=== PATIENT | male | born 1970 | race Caucasian/White ===

== ENCOUNTER 2017-04-19 05:47 | Emergency (ER) | payer MEDICARE, OTHER ==
[~2017-04-19] VITALS: Ht 177.8 cm; Wt 90.7 kg
[~2017-04-19 05:47] MED LIST: ABILIFY30 MG ORAL; ATIVAN1 MG ORAL; BENZOYL PEROXID TP; BENZTROPINE MESY1 MG PO; BUPROPION XL150 MG ORAL; BUSPIRONE HCL15 MG ORAL; DEBROX15 M1 OT; DICYCLOMIN10 MG/5 M1 PO; ESOMEPRAZOLE MA40 MG PO; FLUOXETINE HCL40 MG ORAL; GABAPENTIN600 MG ORAL; IBUPROFEN200 M2 ORAL; IBUPROFEN600 MG ORAL; KLONOPIN1 MG ORAL; LACTULOSE20 GM/301 ORAL; LANSOPRAZOLE30 MG ORAL; LORAZEPAM1 MG ORAL; MECLIZINE HCL25 MG ORAL; MIDODRINE HCL5 MG ORAL; ONDANSETRON4 MG/2 M2 IVP; PAROXETINE HC12.5 MG ORAL; SIMVASTATIN40 MG ORAL; TEMAZEPAM15 MG ORAL; TEMAZEPAM30 MG ORAL; [UNRECOGNIZED DRUG - OTHER] TP
[2017-04-19 06:31] VITALS: BP 135/68
[2017-04-19 06:45] VITALS: BP 135/68
[2017-04-19] MEDS ORDERED: COLACE100 MG ORAL (06:45)
[2017-04-19] MEDS ORDERED: LACTULOSE20 GM/301 ORAL (06:45)
--- NOTE | 2017-04-19 06:54 | Emergency Room Report ---
History of Present Illness General Chief Complaint: Constipation Source: Patient, EMS Present Illness HPI 46-year-old male, presenting with one week of intermittent constipation, left ankle pain. Patient states that his stool has been very hard. His last stool was went to days. He is passing gas. Denies any history of abdominal surgeries. No nausea vomiting. No fever no chills. No black or bloody stools States that he has had problems constipation in the past Also complaining of intermittent left ankle pain, no trauma, patient states that he is still been able to walk without difficulty. Allergies: Coded Allergies: HALOPERIDOL (Verified Allergy, Unknown, 08/09/13) Patient History Past Medical History: see triage record Past Surgical History: none Pertinent Family History: none Reviewed Nursing Documentation: PMH: Agreed, PSxH: Agreed Nursing Documentation-PMH Hx Cardiac Problems: No Hx Hypertension: Yes Hx Cancer: No History Of Psychiatric Problem: Yes Hx Neurological Problems: No Review of Systems All Other Systems: negative except mentioned in HPI Physical Exam Vital Signs Date Time Temp Pulse Resp B/P (MAP) Pulse Ox O2 Delivery O2 Flow Rate FiO2 04/19/17 05:40 98.4 100 16 135/68 99 Sp02 EP Interpretation: reviewed, normal General Appearance: normal inspection, well appearing, no apparent distress, alert, GCS 15, non-toxic, other - calm, cooperative, ambulating around ED Head: normocephalic, atraumatic Eyes: bilateral eye normal inspection, bilateral eye PERRL, bilateral eye EOMI ENT: normal ENT inspection, normal pharynx, normal voice, moist mucus membranes Neck: normal inspection, full range of motion, supple Respiratory: normal inspection, lungs clear, normal breath sounds, no respiratory distress, no retraction, no wheezing, speaking full sentences, chest symmetrical Cardiovascular #1: normal inspection, regular rate, rhythm, no edema, normal capillary refill Cardiovascular #2: 2+ radial (R), 2+ radial (L) Gastrointestinal: normal inspection, non tender, soft, non-distended, no guarding, other - normal bowel sounds. non tender all quadrants Genitourinary: no CVA tenderness Musculoskeletal: back normal, normal range of motion, other - L ankle, nontender, no edema, no gross bony deformities, no signs cellulitis, FROM Neurologic: normal inspection, alert, oriented x3, responsive, motor strength/ tone normal, sensory intact, normal gait, speech normal Psychiatric: normal inspection, judgement/insight normal, memory normal Skin: normal inspection, normal color, no rash, warm/dry, well hydrated, normal turgor Medical Decision Making Diagnostic Impression: Primary Impression: Constipation ER Course 38-year-old male with intermittent constipation for one week. Left ankle pain. DDX: Intermittent constipation: Abdomen is soft nontender, he has passed hard stool yesterday. Do not believe that this patient is obstructed at this time. benign physical exam L ankle pain: no signs of trauma. nontender, benign exam. no indication for imaging at this time. Plan: none in ED ER course: Patient has remained stable during ED stay. ambulatory. asking to eat. Disposition: Patient is to be discharged to home. Prescriptions given are lactulose and colace Patient is instructed to follow up with their primary care doctor within 5 days. Strict return precautions discussed with patient such as fever, chills, worsening/severe pain, no passage of gas/stool x 2 days, chest pain, SOB, nausea , vomiting, which may indicate severe illness. Patient verbalizes understanding and agrees with plan. Also instructed that if ankle pain gets worse, unable to ambulate to fu with ortho Please note that this Emergency Department Report was dictated using [employer] blacker technology software, occasionally this can lead to erroneous entry secondary to interpretation by the dictation equipment Last Vital Signs Date Time Temp Pulse Resp B/P (MAP) Pulse Ox O2 Delivery O2 Flow Rate FiO2 04/19/17 06:31 98.4 16 135/68 99 04/19/17 05:40 100 Disposition: HOME, SELF-CARE Condition: Improved Scripts Lactulose (LACTULOSE*) 20 Gm/30 Ml Solution 20 ML ORAL BID for 3 Days, #120 ML 0 Refills Prov: Christine Schwarz M.D. 04/19/17 Docusate Sodium* (COLACE*) 100 Mg Capsule 100 MG ORAL TWICE A DAY for 7 Days, #14 CAP 0 Refills Prov: Christine Schwarz M.D. 04/19/17 Patient Instructions: Constipation, Adult, Ankle Pain Christine Schwarz M.D. Apr 19, 2017 06:54
== END 2017-04-19 08:36 | disposition home or self-care (01) ==
LOC: EDBD 05:47 → EMR 06:30
DX: K59.00 Constipation, unspecified (principal); M25.572 Pain in left ankle and joints of left foot; I10 Essential (primary) hypertension
CPT/HCPCS: 99283

== ENCOUNTER 2017-05-16 20:55 | Emergency (ER) | payer MEDICARE, OTHER ==
[~2017-05-16] VITALS: Ht 182.9 cm; Wt 81.6 kg
[~2017-05-16 20:55] MED LIST changes: +COLACE100 MG ORAL
[2017-05-16 21:00] VITALS: BP 113/76
[2017-05-16] MEDS ORDERED: IBUPROFEN600 MG ORAL (22:44)
--- NOTE | 2017-05-16 22:44 | Emergency Room Report ---
History of Present Illness General Chief Complaint: Flu Like Symptoms Source: Patient, EMS Present Illness HPI This is a 46-year-old male resided in a [facility]. He has a psychiatric history. He presents with chief complaint of weakness and dizziness. Lynden nauseous but no vomiting. No diarrhea. The room spinning. has congestion and slight cough. Denies any other complaint. Came in by EMS. Is walking from triage without any difficulty. Allergies: Coded Allergies: HALOPERIDOL (Verified Allergy, Unknown, 08/09/13) Patient History Past Medical History: see triage record, old chart reviewed, psych hx Past Surgical History: other Pertinent Family History: none Social History: Denies: smoking Immunizations: other Reviewed Nursing Documentation: PMH: Agreed, PSxH: Agreed Nursing Documentation-PMH Past Medical History: No History, Except For Hx Cardiac Problems: No Hx Hypertension: Yes Hx Cancer: No History Of Psychiatric Problem: Yes Hx Neurological Problems: No Review of Systems Constitutional: Reports: weakness Eye: Denies: eye pain, blurred vision ENT: Denies: ear pain, nose congestion, throat swelling Respiratory: Denies: cough, shortness of breath Cardiovascular: Denies: chest pain, palpitations Gastrointestinal: Denies: abdominal pain, diarrhea, nausea, vomiting Musculoskeletal: Denies: back pain, joint pain Skin: Denies: rash Neurological: Denies: headache, numbness Endocrine: Denies: increased thirst, increased urine Hematologic/Lymphatic: Denies: easy bruising All Other Systems: negative except mentioned in HPI Physical Exam Vital Signs Date Time Temp Pulse Resp B/P (MAP) Pulse Ox O2 Delivery O2 Flow Rate FiO2 05/16/17 20:47 100.0 111 16 113/76 98 vitals with a low-grade fever Sp02 EP Interpretation: reviewed, normal General Appearance: well appearing, no apparent distress, alert Head: normocephalic, atraumatic Eyes: bilateral eye PERRL, bilateral eye EOMI ENT: hearing grossly normal, normal pharynx Neck: full range of motion, supple, no meningismus Respiratory: chest non-tender, lungs clear, normal breath sounds Cardiovascular #1: regular rate, rhythm, no murmur Gastrointestinal: normal bowel sounds, non tender, no mass, no organomegaly, no bruit, non-distended Musculoskeletal: back normal, gait/station normal, normal range of motion Psychiatric: mood/affect normal Skin: warm/dry Medical Decision Making Diagnostic Impression: Primary Impression: Viral illness ER Course Patient with a viral illness. No evidence of meningitis, sepsis, pneumonia to name a few. Last Vital Signs Date Time Temp Pulse Resp B/P (MAP) Pulse Ox O2 Delivery O2 Flow Rate FiO2 05/16/17 20:47 100.0 111 16 113/76 98 Status: improved Disposition: HOME, SELF-CARE Condition: Stable Scripts Ibuprofen* (MOTRIN*) 600 Mg Tablet 600 MG ORAL Q8H Y for For Pain, #30 TAB 0 Refills Prov: JIM PRYOR M.D. 05/16/17 Additional Instructions: Followup with your Dr. in 7 days. Return if symptom worsen. JIM PRYOR M.D. May 16, 2017 22:44
[2017-05-16 23:07] VITALS: BP 113/76
== END 2017-05-16 22:25 | disposition home or self-care (01) ==
LOC: EDBD 20:55 → EMR 21:44
DX: B34.9 Viral infection, unspecified (principal); R53.1 Weakness; R42 Dizziness and giddiness; I10 Essential (primary) hypertension
CPT/HCPCS: 99284

== ENCOUNTER 2017-12-21 19:22 | Emergency (ER) | payer MEDICARE, OTHER ==
[~2017-12-21] VITALS: Ht 177.8 cm; Wt 85.3 kg
[2017-12-21] MEDS ORDERED: Metoclopramide 10mg/2ml Inj IVP ONE (19:30)
[2017-12-21] MEDS ORDERED: Meclizine 25mg tab ORAL ONE (19:30)
[2017-12-21 19:55] LABS: BASOPHILS % (AUTO) 0.8 % (0.0-2.0); EOSINOPHILS % (AUTO) 1.5 % (0.0-3.0); HEMATOCRIT 39.1 % (42.0-52.0); HEMOGLOBIN 14.1 G/DL (14.2-18.0); LYMPHOCYTES % (AUTO) 19.9 % (20.0-45.0); MEAN CORPUSCULAR VOLUME 88 FL (80-99); MONOCYTES % (AUTO) 6.5 % (1.0-10.0); NEUTROPHILS % (AUTO) 71.3 % (45.0-75.0); PLATELET COUNT 253 K/UL (150-450); RED BLOOD COUNT 4.44 M/UL (4.70-6.10); RED CELL DISTRIBUTION WIDTH 11.4 % (11.6-14.8)
[2017-12-21 20:04] LABS: ANION GAP 7 mmol/L (5-15); BLOOD UREA NITROGEN 13 mg/dL (7-18); CALCIUM 9.3 MG/DL (8.5-10.1); CARBON DIOXIDE 27 MMOL/L (21-32); CHLORIDE 101 MMOL/L (98-107); CREATININE 0.9 MG/DL (0.55-1.30); SODIUM 135 MMOL/L (136-145)
[2017-12-21 20:09] LABS: ALANINE AMINOTRANSFERASE 23 U/L (12-78); ALBUMIN 4.1 G/DL (3.4-5.0); ALBUMIN/GLOBULIN RATIO 1.1 (1.0-2.7); ALKALINE PHOSPHATASE 59 U/L (46-116); ASPARTATE AMINO TRANSFERASE 31 U/L (15-37); BILIRUBIN,TOTAL 0.7 MG/DL (0.2-1.0)
[2017-12-21 20:37] VITALS: BP 103/65
[2017-12-21] MEDS ORDERED: REGLAN10 MG ORAL (20:47)
[2017-12-21] MEDS ORDERED: VERTICALM25 MG ORAL (20:47)
[2017-12-21 21:10] VITALS: BP 103/65
--- NOTE | 2017-12-21 21:19 | Emergency Room Report ---
History of Present Illness General Chief Complaint: Dizziness Source: Patient Present Illness HPI 47-year-old male presents ED complaining of dizziness. Brought in by EMS. States that he is expressing room spinning sensation, worse with sudden head movement. Notes nausea and vomiting. Denies any headache. Denies any chest pain or shortness of breath. Patient states he was receiving diagnosed with vertigo after being seen at [facility]. Patient states MRI of his head was negative. Was discharged on meclizine. States he did not fill his prescription yet. No other aggravating relieving factors. Denies any other associated symptoms Allergies: Coded Allergies: HALOPERIDOL (Verified Allergy, Unknown, 08/09/13) Patient History Past Medical History: HTN, psych hx Past Surgical History: none Pertinent Family History: none Social History: Denies: smoking, alcohol use, drug use Immunizations: UTD Reviewed Nursing Documentation: PMH: Agreed; PSxH: Agreed Nursing Documentation-PMH Hx Cardiac Problems: No Hx Hypertension: Yes Hx Cancer: No Hx Neurological Problems: No Review of Systems All Other Systems: negative except mentioned in HPI Physical Exam Vital Signs Date Time Temp Pulse Resp B/P (MAP) Pulse Ox O2 Delivery O2 Flow Rate FiO2 12/21/17 19:11 98.6 71 17 115/76 98 Room Air 98.6 Sp02 EP Interpretation: reviewed, normal General Appearance: no apparent distress, alert, GCS 15, non-toxic Head: normocephalic, atraumatic Eyes: bilateral eye normal inspection, bilateral eye PERRL ENT: hearing grossly normal, normal pharynx, no angioedema, normal voice Neck: full range of motion, supple/symm/no masses Respiratory: chest non-tender, lungs clear, normal breath sounds, speaking full sentences Cardiovascular #1: regular rate, rhythm, no edema Cardiovascular #2: 2+ carotid (R), 2+ carotid (L), 2+ radial (R), 2+ radial (L) , 2+ dorsalis pedis (R), 2+ dorsalis pedis (L) Gastrointestinal: normal bowel sounds, non tender, soft, non-distended, no guarding, no rebound Rectal: deferred Genitourinary: normal inspection, no CVA tenderness Musculoskeletal: back normal, gait/station normal, normal range of motion, non- tender Neurologic: alert, oriented x3, responsive, motor strength/tone normal, sensory intact, speech normal Psychiatric: judgement/insight normal, memory normal, mood/affect normal, no suicidal/homicidal ideation Reflexes: 3+ bicep (R), 3+ bicep (L), 3+ tricep (R), 3+ tricep (L), 3+ knee (R) , 3+ knee (L) Skin: normal color, no rash, warm/dry, well hydrated Lymphatic: no adenopathy Medical Decision Making Diagnostic Impression: Primary Impression: Vertigo ER Course Hospital Course 47 year-old male presents ED complaining of dizziness Differential diagnoses include: dehydration, vertigo, psych Clinical course Patient placed on stretcher.After initial history and physical I ordered labs, IVFS, reglan, meclizine labs reviewed- no leukocytosis, hemoglobin/hematocrit stable, electrolytes okay, Upon reassessment patient states his symptoms have improved. Clinical findings consistent with vertigo. Patient or to have a workup at [facility] including MRI. I see no reason to repeat imaging. Patient will be discharged with meclizine and Reglan I. I feel this is a highly complex case requiring extensive working including EKG/Rhythm strip, Xray/CT/US, Blood/urine lab work, repeat exams while in ED, and administration of strong opiates/narcotics for pain control, admission to hospital or close patient follow up. Diagnosis - vertigo stable and discharged to home with prescription for meclizine, reglan. Followup with PMD. Return to ED if symptoms recur or worsen Labs Test 12/21/17 19:45 White Blood Count 7.0 K/UL (4.8-10.8) Red Blood Count 4.44 M/UL (4.70-6.10) Hemoglobin 14.1 G/DL (14.2-18.0) Hematocrit 39.1 % (42.0-52.0) Mean Corpuscular Volume 88 FL (80-99) Mean Corpuscular Hemoglobin 31.8 PG (27.0-31.0) Mean Corpuscular Hemoglobin Concent 36.2 G/DL (32.0-36.0) Red Cell Distribution Width 11.4 % (11.6-14.8) Platelet Count 253 K/UL (150-450) Mean Platelet Volume 5.4 FL (6.5-10.1) Neutrophils (%) (Auto) 71.3 % (45.0-75.0) Lymphocytes (%) (Auto) 19.9 % (20.0-45.0) Monocytes (%) (Auto) 6.5 % (1.0-10.0) Eosinophils (%) (Auto) 1.5 % (0.0-3.0) Basophils (%) (Auto) 0.8 % (0.0-2.0) Sodium Level 135 MMOL/L (136-145) Potassium Level 4.0 MMOL/L (3.5-5.1) Chloride Level 101 MMOL/L (98-107) Carbon Dioxide Level 27 MMOL/L (21-32) Anion Gap 7 mmol/L (5-15) Blood Urea Nitrogen 13 mg/dL (7-18) Creatinine 0.9 MG/DL (0.55-1.30) Estimat Glomerular Filtration Rate > 60 mL/min (>60) Glucose Level 117 MG/DL (74-106) Calcium Level 9.3 MG/DL (8.5-10.1) Total Bilirubin 0.7 MG/DL (0.2-1.0) Aspartate Amino Transf (AST/SGOT) 31 U/L (15-37) Alanine Aminotransferase (ALT/SGPT) 23 U/L (12-78) Alkaline Phosphatase 59 U/L (46-116) Total Protein 7.8 G/DL (6.4-8.2) Albumin 4.1 G/DL (3.4-5.0) Globulin 3.7 g/dL Albumin/Globulin Ratio 1.1 (1.0-2.7) Lab Results Impression Last Vital Signs Date Time Temp Pulse Resp B/P (MAP) Pulse Ox O2 Delivery O2 Flow Rate FiO2 12/21/17 20:37 97.7 74 16 103/65 100 Room Air 97.7 Status: improved Disposition: HOME, SELF-CARE Condition: Stable Scripts Meclizine Hcl* (VERTICALM*) 25 Mg Tablet 25 MG ORAL THREE TIMES A DAY for 7 Days, TAB Prov: Ashwin Ham MD 12/21/17 Metoclopramide Hcl* (REGLAN*) 10 Mg Tablet 10 MG ORAL QID for 7 Days, TAB Prov: Ashwin Ham MD 12/21/17 Patient Instructions: Vertigo, Jamie Maneuver Self-Care Ashwin Ham MD Dec 21, 2017 21:19
== END 2017-12-21 21:10 | disposition home or self-care (01) ==
LOC: EDBD 19:22 → EMR 20:04
DX: R42 Dizziness and giddiness (principal); I10 Essential (primary) hypertension; Z79.899 Other long term (current) drug therapy
CPT/HCPCS: 36415; 80053; 85025; 96361; 96374; 99284; J2765

== ENCOUNTER 2018-02-24 06:37 | Emergency (ER) | payer MEDICARE, OTHER ==
[~2018-02-24] VITALS: Ht 177.8 cm; Wt 83.9 kg
[2018-02-24 06:36] VITALS: BP 116/76
[~2018-02-24 06:37] MED LIST changes: +REGLAN10 MG ORAL; +VERTICALM25 MG ORAL
[2018-02-24] MEDS ORDERED: Ketorolac 60mg Inj IM ONE (06:45)
--- NOTE | 2018-02-24 06:49 | Emergency Room Report ---
History of Present Illness General Chief Complaint: Pain Source: Patient Present Illness HPI 47-year-old male with history of anxiety and depression, reports that he's having bilateral foot pain, and he gets blisters very easily. He denies diabetes, denies smoking drugs or alcohol use. Any recent injuries, just reports that he got a new pair shoes,[employer], and they run small. I told him that I have the same pair and mine run small as well, I recommend that he return for a larger size or just get a new pair and not wear these for extended periods. He denies any redness or swelling, just reports he gets frequent blisters and has popped patient. He requests something for the pain as well as a bus pass. Allergies: Coded Allergies: HALOPERIDOL (Verified Allergy, Unknown, 08/09/13) Patient History Past Medical History: see triage record Reviewed Nursing Documentation: PMH: Agreed; PSxH: Agreed Nursing Documentation-PMH Hx Cardiac Problems: No Hx Hypertension: No - hypotension Hx Cancer: No History Of Psychiatric Problem: Yes Hx Neurological Problems: No Review of Systems Constitutional: Denies: fever Eye: Denies: acuity changes Respiratory: Denies: cough, shortness of breath Cardiovascular: Denies: chest pain Gastrointestinal: Denies: nausea, vomiting Skin: Denies: rash Neurological: Denies: headache All Other Systems: negative except mentioned in HPI Physical Exam Vital Signs Date Time Temp Pulse Resp B/P (MAP) Pulse Ox O2 Delivery O2 Flow Rate FiO2 02/24/18 06:25 99.9 99 16 116/76 96 Room Air General Appearance: well appearing, no apparent distress Head: normocephalic, atraumatic ENT: hearing grossly normal, normal voice Neck: full range of motion, supple Respiratory: normal inspection, chest non-tender, lungs clear, normal breath sounds, no respiratory distress, speaking full sentences Cardiovascular #1: normal inspection, normal peripheral pulses, regular rate, rhythm Cardiovascular #2: 2+ dorsalis pedis (R), 2+ dorsalis pedis (L) Gastrointestinal: non tender, soft, no mass, no guarding, no rebound Genitourinary: no CVA tenderness Musculoskeletal: gait/station normal, normal range of motion, no calf tenderness Neurologic: alert, normal gait Psychiatric: mood/affect normal Skin: no rash, other - no blisters seen bilateral feet; just small linear abrasion 3-4 on each foot, no erythema, no warmth, no tenderness Lymphatic: no adenopathy Medical Decision Making Diagnostic Impression: Primary Impression: Pain ER Course patient with foot pain, c/o blisters, but no blisters seen currently, he reports he gets them frequently though, i recommend changing shoes to a looser pair, will give ibuprofen; i think he is primarily here for a bus pass Last Vital Signs Date Time Temp Pulse Resp B/P (MAP) Pulse Ox O2 Delivery O2 Flow Rate FiO2 02/24/18 06:25 99.9 99 16 116/76 96 Room Air Disposition: HOME, SELF-CARE Condition: Stable CORY WARNER M.D Feb 24, 2018 06:49
[2018-02-24] MEDS ORDERED: IBUPROFEN600 MG ORAL (06:50)
[2018-02-24] MEDS ORDERED: Flu Vaccine (Alfuria) for Pts Less than 65 Years old IM ONE (07:00)
[2018-02-24 07:21] VITALS: BP 120/76
== END 2018-02-24 07:20 | disposition home or self-care (01) ==
LOC: EDBD 06:37 → EMR 07:10
DX: M79.672 Pain in left foot (principal); M79.671 Pain in right foot; S90.812A Abrasion, left foot, initial encounter; S90.811A Abrasion, right foot, initial encounter; X58.XXXA Exposure to other specified factors, initial encounter; Y92.9 Unspecified place or not applicable; Z23 Encounter for immunization; F41.9 Anxiety disorder, unspecified; F32.9 Major depressive disorder, single episode, unspecified
CPT/HCPCS: 96372; 99283; G0008; Q2035; 90686